=== PATIENT | female | born 1995 | race Caucasian/White ===

== ENCOUNTER 2018-03-01 02:57 | Emergency (ER) | payer SELFPAY ==
[~2018-03-01] VITALS: Ht 167.6 cm; Wt 53.5 kg
--- NOTE | 2018-03-01 03:05 | NUR ---
[facility] 89 [place] C/O ETOH AND MULTIPLE EPISODES OF N/V. PT AAOX4. RESPIRATIONS EVEN AND UNLABORED. NAD NOTED. PT RESTING COMFORTABLY AND PLACED ON MONITOR. WAITING MD EVALUATION
--- NOTE | 2018-03-01 04:03 | NUR ---
PT RESTING COMFORTABLY IN BED. NAD NOTED. VSS. RESPIRATIONS EVEN AND UNLABORED. CALL LIGHT WITHIN REACH
[2018-03-01 05:42] VITALS: BP 109/57
--- NOTE | 2018-03-01 05:42 | NUR ---
Patient discharged to home in stable condition. Written and verbal after care instructions given. Patient verbalizes understanding of instruction. Pt ambulatory with a steady gait. Pt calling [employer] and is leaving with friend.
== END 2018-03-01 05:48 | disposition home or self-care (01) ==
LOC: ER 03:01
DX: F10.129 Alcohol abuse with intoxication, unspecified (principal); Y90.9 Presence of alcohol in blood, level not specified
CPT/HCPCS: 82962-TC; A4606; Z7610